=== PATIENT | female | born 1990 | race Caucasian/White ===

== ENCOUNTER 2017-07-18 21:55 | Emergency (ER) | payer OTHER ==
[2017-07-18 22:08] VITALS: BP 108/70
--- NOTE | 2017-07-18 22:11 | UC ---
Allergic Reaction HPI - HPI Summary HPI Summary: 26 year old female with an autoimmune disorder presents with swollen tongue and lips. - History of Current Complaint Chief Complaint: UCAllergicReaction Stated Complaint: SWOLLEN LIP AND TONGUE Time Seen by Provider: 07/18/17 22:10 Hx Obtained From: Patient Hx Last Menstrual Period: 06/24/17 ?: Yes Onset/Duration: Sudden Onset Severity Initially: Moderate Severity Currently: Moderate Pain Scale Used: 0-10 Numeric - 5 Location: Diffuse Character: Swelling - Allergies/Home Medications Allergies/Adverse Reactions: Allergies Allergy/AdvReac Type Severity Reaction Status Date / Time Diphenhydramine Allergy See Comment Verified 07/18/17 22:08 [From Benadryl] Home Medications: Home Medications Cetirizine* [ZyrTEC 10 MG TAB*] 10 mg PO DAILY 07/18/17 [History Confirmed 07/18] LoraTADine TAB(NF) [Claritin 10 MG TAB(NF)] 10 mg PO DAILY 07/18/17 [History Confirmed 07/18/17] PMH/Surg Hx/FS Hx/Imm Hx Previously Healthy: Yes - Surgical History Surgical History: None - Social History Alcohol Use: Rare Substance Use Type: None Smoking Status (MU): Never Smoked Tobacco Review of Systems Constitutional: Negative Skin: Other - lip and tongue swelling Eyes: Negative ENT: Negative Respiratory: Negative Cardiovascular: Negative Gastrointestinal: Negative Genitourinary: Negative Motor: Negative Neurovascular: Negative Musculoskeletal: Negative Neurological: Negative Psychological: Negative All Other Systems Reviewed And Are Negative: Yes Physical Exam Triage Information Reviewed: Yes Vital Signs: Initial Vital Signs Temp 36.7 C 07/18/17 22:03 Pulse 79 07/18/17 22:03 Resp 18 07/18/17 22:03 BP 108/70 07/18/17 22:03 Pulse Ox 100 07/18/17 22:03 Vital Signs Reviewed: Yes Eye Exam: Normal ENT Exam: Normal Dental Exam: Normal Neck exam: Normal Neck: Positive: 1 Respiratory Exam: Normal Cardiovascular Exam: Normal Abdominal Exam: Normal Musculoskeletal Exam: Normal Neurological Exam: Normal Psychological Exam: Normal Skin: Positive: Other - lip and tongue swelling Allergic Reaction Course/Dx - Differential Dx/Diagnosis Provider Diagnoses: lip and tongue swelling Discharge - Discharge Plan Condition: Stable Disposition: HOME Patient Education Materials: Autoimmune Disease (ED) Referrals: No Primary Care Phys,NOPCP [Primary Care Provider] -
[2017-07-18] MEDS ORDERED: predniSONE TAB* 20 MG PO ONE (22:17)
== END 2017-07-18 22:30 | disposition home or self-care (01) ==
LOC: UCEAST 21:55
DX: R22.0 Localized swelling, mass and lump, head (principal); M35.9 Systemic involvement of connective tissue, unspecified
CPT/HCPCS: 99202; G0463; J7512

== ENCOUNTER 2018-11-09 00:32 | Emergency (ER) | payer BC, OTHER ==
[2018-11-09] MEDS ORDERED: methylPREDNISolone 125 MG* 2 ML VIAL IM ONE (01:03)
[2018-11-09] MEDS ORDERED: methylPREDNISolone 125 MG* 2 ML VIAL IV ONE (01:04)
[2018-11-09] MEDS ORDERED: EPINEPHRINE 1 MG/ML 1 ML VIAL IM ONE (01:04)
--- NOTE | 2018-11-09 01:09 | ED ---
Allergic Reaction/Systemic - HPI Summary HPI Summary: 27-year-old female presents with allergic reaction today. States she has history of autoimmune disorder that causes her to break out in hives. States she's never had mild swelling that she is having today. States she tried ranitidine and Claritin with no relief. States that she has scattered hives across body. She has some upper lip swelling. She denies any chest pain or shortness breath. She states she had some acid reflux type pain. She denies abdominal pain. No nausea and vomiting. She admits to sore throat. - History of Current Complaint Chief Complaint: EDAllergicReaction Time Seen by Provider: 11/09/18 00:58 Hx Last Menstrual Period: 06/24/17 Pain Intensity: 0 - Allergies/Home Medications Allergies/Adverse Reactions: Allergies Allergy/AdvReac Type Severity Reaction Status Date / Time diphenhydramine Allergy See Comment Verified 11/09/18 01:19 [From Benadryl] Home Medications: Home Medications Norethindrone-Ethinyl Estrad [Balziva 28 Tablet] 1 tab PO DAILY 11/09/18 [ History Confirmed 11/09/18] PMH/Surg Hx/FS Hx/Imm Hx Endocrine/Hematology History: Denies: Hx Anticoagulant Therapy Respiratory History: Denies: Hx Asthma Infectious Disease History: No Infectious Disease History: Denies: Traveled Outside the [place] in Last 30 Days - Family History Known Family History: Positive: Non-Contributory - Social History Alcohol Use: Rare Substance Use Type: Reports: None Smoking Status (MU): Never Smoked Tobacco Review of Systems Negative: Fever Positive: Sore Throat, Other - facial swelling Negative: Chest Pain Negative: Shortness Of Breath Positive: Rash All Other Systems Reviewed And Are Negative: Yes Physical Exam Triage Information Reviewed: Yes Vital Signs On Initial Exam: Initial Vitals Temp Pulse Resp BP Pulse Ox 97.8 F 92 16 118/74 100 11/09/18 00:34 11/09/18 00:34 11/09/18 00:34 11/09/18 00:34 11/09/18 00:34 Vital Signs Reviewed: Yes Appearance: Positive: Well-Appearing Skin: Positive: Warm, Dry, Other - couple urticaria across back Head/Face: Positive: Normal Head/Face Inspection Eyes: Positive: Normal, EOMI, CORRY, Conjunctiva Clear ENT: Positive: Normal ENT inspection, TMs normal, Other - upper mouth swelling Neck: Positive: Other: - edema to upper lip Respiratory/Lung Sounds: Positive: Clear to Auscultation, Breath Sounds Present Cardiovascular: Positive: Normal, RRR Abdomen Description: Positive: Nontender, Soft Bowel Sounds: Positive: Present Musculoskeletal: Positive: Normal Neurological: Positive: Normal Psychiatric: Positive: Normal Diagnostics - Vital Signs Vital Signs Temp Pulse Resp BP Pulse Ox 11/09/18 00:34 97.8 F 92 16 118/74 100 - Laboratory Lab Statement: Any lab studies that have been ordered have been reviewed, and results considered in the medical decision making process. Re-Evaluation - Re-Evaluation First Eval Re-Evaluation Time: 01:50 Change: Improved Comment: swelling decreased in face Second Eval Re-Evaluation Time: 03:01 Change: Improved Comment: no repeat reaction Allergic Reaction Course/Dx - Course Course Of Treatment: 27-year-old female presents with allergic reaction today. States she has history of autoimmune disorder that causes her to break out in hives. States she's never had mild swelling that she is having today. States she tried ranitidine and Claritin with no relief. States that she has scattered hives across body. She has some upper lip swelling. She denies any chest pain or shortness breath. She states she had some acid reflux type pain. She denies abdominal pain. No nausea and vomiting. She admits to sore throat. On exam has edema noted to the upper lip and trace edema noted of the mouth. Has hives across body. With presentation we'll give epi. Gave epi and solu-medrol and patient swelling in face got better. will discharge on prednisone. told continue pepcid and zyrec. patient understand and agrees with plan. - Diagnoses Differential Diagnosis/HQI/PQRI: Positive: Anaphylaxis, Angioedema, Local Allergic Reaction, Urticaria Provider Diagnoses: Anaphylactic reaction Discharge - Sign-Out/Discharge Documenting (check all that apply): Patient Departure Patient Received Moderate/Deep Sedation with Procedure: No - Discharge Plan Condition: Good Disposition: HOME Prescriptions: EPINEPHrine [Epipen] 0.3 mg IJ ONCE #1 auto.injct predniSONE TAB* [Deltasone 10 MG TAB*] 40 mg PO DAILY #24 tab Patient Education Materials: Anaphylaxis (ED) Referrals: No Primary Care Phys,NOPCP [Primary Care Provider] - Additional Instructions: take prednisone 40mg (4 tablets) for 4 days, then 20mg (2 tablets) for 3 days, then 10 mg for 2 days Take Pepcid twice a day for 5 days continue clartin or zytrec daily Return to ED if shortness of breath, chest pain, or if develop any new or worsening symptoms - Billing Disposition and Condition Condition: GOOD Disposition: Home
[2018-11-09 03:04] VITALS: BP 110/66
== END 2018-11-09 03:14 | disposition home or self-care (01) ==
LOC: ED 00:32
DX: T78.2XXA Anaphylactic shock, unspecified, initial encounter (principal); J02.9 Acute pharyngitis, unspecified; R21 Rash and other nonspecific skin eruption
CPT/HCPCS: 96372; 96374; 99283; J2930